=== PATIENT | female | born 1995 | race Caucasian/White ===

== ENCOUNTER 2020-04-29 19:29 | Emergency (ER) | payer OTHER ==
[~2020-04-29] VITALS: Ht 170.2 cm; Wt 66.5 kg
[2020-04-29 19:39] VITALS: BP 149/110
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
[2020-04-29] MEDS ORDERED: HYDR-3164 PO (21:11)
[2020-04-29] MEDS ORDERED: ORPH100T PO (21:11)
== END 2020-04-29 21:34 | disposition home or self-care (01) ==
LOC: ER 19:29
DX: R51.9 Headache, unspecified (principal); G89.11 Acute pain due to trauma; V49.59XA Passenger injured in collision with other motor vehicles in traffic accident, initial encounter; Y92.488 Other paved roadways as the place of occurrence of the external cause; Y93.89 Activity, other specified; Y99.8 Other external cause status
CPT/HCPCS: 70450; 72125; 81025; 99285